=== PATIENT | male | born 1955 | race Caucasian/White ===

== ENCOUNTER 2016-10-07 05:37 | Inpatient (IN) | payer BC, OTHER ==
[2016-10-04 10:06] LABS: HEMATOCRIT 41.3 % (42.0-52.0); HEMOGLOBIN 14.2 gm/dL (14.0-18.0); MCHC 34.5 % (28.0-37.0); MCV 95.6 fL (80.0-100.0); RBC 4.32 mil/uL (4.50-6.00); RDW 16.1 % (10.5-14.5); WBC 12.4 thou/uL (4.0-11.0)
[2016-10-04 10:21] LABS: PROTIME 10.1 Seconds (9.3-11.4)
[2016-10-04 10:28] LABS: URINE BILIRUBIN NEGATIVE (Negative); URINE BLOOD NEGATIVE (Negative); URINE COLOR YELLOW; URINE GLUCOSE-RANDOM* NEGATIVE (Negative); URINE KETONES NEGATIVE (Negative); URINE LEUKOCYTES-REFLEX NEGATIVE (Negative); URINE PROTEIN (DIPSTICK) NEGATIVE (Negative); URINE UROBILINOGEN 0.2 E.U./dl (0.2-1.0)
[2016-10-04 10:33] LABS: ALBUMIN 3.8 g/dL (3.4-5.0); CREATININE 1.2 mg/dL (0.6-1.3); POTASSIUM 3.9 mmol/L (3.5-5.1); TOTAL BILIRUBIN 0.5 mg/dL (<0.1-1.0); TOTAL PROTEIN 6.9 g/dL (6.4-8.2)
[~2016-10-07] VITALS: Ht 162.6 cm; Wt 116.3 kg
--- NOTE | ~2016-10-07 | O ---
[facility] [place] [address] OPERATIVE REPORT Name: UDAY THOMASON Room #: 245-P [facility]..#: [id number] Admission: 10/11/16 Attend Phys: Ab Valente MD Discharge: 10/12/16 Date of : 57 Report #: [id number] THIS REPORT FOR: //name// CC: Ab Garcia DATE OF SERVICE: 10/11/2016 PREOPERATIVE DIAGNOSIS: Right lower extremity arterial occlusive disease. POSTOPERATIVE DIAGNOSIS: Right lower extremity arterial occlusive disease. OPERATION: right femoral to below the knee popliteal artery bypass with 6 mm PTFE. SURGEON: Ab Valente M.D. CAREER DEVELOPMENT ASSOCIATE: Rishi. ANESTHESIA: General. INDICATIONS: The patient is a 61-year-old with lower extremity arterial occlusive disease. The patient has failed angioplasty of the superficial femoral artery and has also failed a femoral popliteal bypass with vein approximately 2 months ago and now the patient has rest pain. FINDINGS AND TECHNIQUE: After general anesthesia was established, an incision was made below the knee to expose the below the knee popliteal artery. Another incision was made in the groin to expose the common femoral artery. There was scarring in both areas from previous surgery. A tunnel was made between the two arterial exposures and a length of 6 mm PTFE was brought through. 10,000 units of heparin were given and end-to-side anastomosis was made between the PTFE and the common femoral artery, the distal end was sewn to an end-to-side fashion to the popliteal artery. Flow was established through the graft and hemostasis was ascertained. 25 mg of protamine was given. When hemostasis was satisfactory, the wounds were irrigated with antibiotics and closed in the usual fashion. The patient was taken to the recovery area in good condition, having tolerated the procedure well. Doppler was used to interrogate the graft and the distal anastomosis [facility] [address] [place] [address] OPERATIVE REPORT Name: UDAY THOMASON Room #: 245-P [facility] IN M.R.#: [id number] Admission: 10/11/16 Attend Phys: Ab Valente MD Discharge: 10/12/16 Date of : 57 Report #: [id number] prior to closure and good flow without high frequency obstructive signals were noted. All counts reported as correct. <ELECTRONICALLY SIGNED> By: Ab Valente MD 10/16/16 [id number] Ab Valente MD /nt
--- NOTE | ~2016-10-07 | HC ---
[facility] [place] [address] CONSULTATION Name: UDAY THOMASON Room #: 245-P [facility] IN ..#: [id number] Admission: 10/11/16 Attend Phys: Ab Valente MD Discharge: Date of : 57 Report #: [id number] THIS REPORT FOR: //name// CC: Ab Garcia DATE OF SERVICE: 10/12/2016 REASON FOR CONSULTATION: Consult has been requested by Dr. Valente for management of diabetes. HISTORY OF PRESENT ILLNESS: The patient is a 61-year-old male with history of hypertension, diabetes, history of peripheral vascular disease, was admitted yesterday for right fem-popliteal bypass surgery. The patient is seen postoperatively. The patient is presently sitting in the chair, denies any complaint. His pain is fairly well controlled at present. The patient denies any dizziness, chest pain, shortness of breath. No nausea or vomiting. No fever or chills. PAST MEDICAL HISTORY: Significant for hypertension, hyperlipidemia, COPD, peripheral vascular disease. No history of any peptic ulcer disease, bleeding disorder, no coronary artery disease. No CVA. ALLERGIES: Allergic to GABAPENTIN, please look at the nursing documentation for reaction. HOME MEDICATION: Includes Plavix, cetirizine, atorvastatin, lisinopril, aspirin, naproxen, hydrocodone, Lyrica, alprazolam, Symbicort, latanoprost eye drops, Pepcid and metformin 500 mg once a day. Please look at the nursing documentation. FAMILY HISTORY: Significant for diabetes. SOCIAL HISTORY: He still activity smokes. No history of alcohol abuse or illicit drug abuse. The patient works as a cnc mill set up operator. REVIEW OF SYSTEMS: CONSTITUTIONAL: No recent weight loss or weight gain. No fever or chills. EYES: No change in vision. THROAT: Denies any sore throat. RESPIRATORY: No cough, expectoration. CARDIOVASCULAR: No chest pain, dizziness. GASTROINTESTINAL: No nausea, vomiting. GENITOURINARY: No dysuria, hematuria. NEUROLOGIC: He has tingling in his fingertips. He is afraid of wearing Accu-Chek because it is painful. [facility] [address] [place] [address] CONSULTATION Name: UDAY THOMASON [place]on Room #: 245-P [facility] IN .R.#: [id number] Admission: 10/11/16 Attend Phys: Ab Valente MD Discharge: Date of : 57 Report #: [id number] A 12-point review of system is negative other than the positive and negative dictated in the history of present illness and in the review of system. PHYSICAL EXAMINATION: VITAL SIGNS: Blood pressure 137/66, heart rate is 80 per minute, afebrile. GENERAL: The patient is awake and alert, not in acute respiratory distress. He is sitting in a chair. EYES: Pupils equal and reactive to light. THROAT: Appears normal. NECK: Supple, no JVD, no bruit, no lymphadenopathy. CARDIOVASCULAR: S1, S2. No S3. CHEST: Bilateral air entry present. Clear on auscultation. ABDOMEN: Soft, bowel sounds present, no mass, no organomegaly, no tenderness. PERIPHERY: No pedal edema. Dorsalis pedis 1+ on the left leg, warm right foot. LABORATORY DATA: Reviewed. His white count is 14.8, hemoglobin is 11.9, platelets are 249. Blood glucose was 117. Basic metabolic panel: Potassium 3.8, BUN and creatinine 10 and 0.9. ASSESSMENT AND PLAN: 1. Status post femoropopliteal bypass. Postoperative course as per Dr. Valente. Plans are noted to discharge the patient later today. 2. Diabetes. The patient has been refusing Accu-Chek because he states it is very painful. He does not remember the last hemoglobin A1c. I have encouraged him to follow up with his PCP to have his A1c checked and it is very likely that his A1c has been followed regularly as outpatient. He will continue on metformin. 3. Chronic obstructive pulmonary disease. The patient will be continued on Symbicort. 4. Tobacco abuse. I have strongly encouraged the patient to stop smoking. The patient will follow up with Dr. Valente as needed. I have also advised him to follow up closely with his PCP. Treatment plan has been explained to the patient in detail. <ELECTRONICALLY SIGNED> By: Celio Browning MD 10/12/16 1306 [id number] Celio Browning MD /nt
[~2016-10-07 05:37] MED LIST: ALEVE220 MG PO; ALL DAY ALLERGY10 M3 PO; ALPRAZOLAM 0.0.25 M1 PO; AMBIEN 5 MG TABL5 M1 PO; ASPIR 8181 MG PO; AVODART0.5 MG PO; CLONAZEPAM PO; DUONEB 2.5-0.5 M3 ML INH; GLUCOPHAGE XR500 MG PO; GLUCOPHAGE XR750 MG PO; HYDROCODONE-AP1 EAC6 PO; LEVAQUIN 750 M750 MG PO; LIPITOR 20 MG T20 M1 PO; LISINOPRIL10 MG PO; LYRICA 50 MG50 MG PO; MUCINEX600 MG PO; NICOTINE TRANSD21 M1 TD; NOHOMEMEDICATIONS; NOVOLOG100 UNIT/1; PHENTERMINE H37.5 MG PO; PLAVIX 75 MG TA75 M1 PO; PREDNISONE 10 M10 MG; PROZAC 10 MG CA10 MG PO; SYMBICORT160 MCG/4. INH; XALATAN2.5 ML OPHTHALMIC; XANAX 0.5 MG0.5 MG PO
[2016-10-11 07:00] VITALS: BP 125/69
[2016-10-12 05:56] LABS: HEMATOCRIT 34.5 % (42.0-52.0); HEMOGLOBIN 11.9 gm/dL (14.0-18.0); MCH 33.1 pg (26.0-34.0); MCHC 34.4 % (28.0-37.0); MCV 96.1 fL (80.0-100.0); RBC 3.59 mil/uL (4.50-6.00); RDW 15.9 % (10.5-14.5); WBC 14.8 thou/uL (4.0-11.0)
[2016-10-12 06:12] LABS: CALCIUM 7.7 mg/dL (8.5-10.1); CREATININE 0.9 mg/dL (0.6-1.3); POTASSIUM 3.8 mmol/L (3.5-5.1)
[2016-10-12 10:08] VITALS: BP 124/70
[2016-10-12 11:48] VITALS: BP 124/70
== END 2016-10-12 13:17 | disposition home or self-care (01) | DRG 253 ==
LOC: PRE 05:37 → TBA 10-11 05:12 → PRE 10-11 08:25 → ICU 10-11 13:52
PROVIDERS: Physician Assistant; Surgery Vascular Surgery
PROC: 041K0JL Bypass Right Femoral Artery to Popliteal Artery with Synthetic Substitute, Open Approach (ICD-10-PCS; principal; 2016-10-11)
DX: I74.8 Embolism and thrombosis of other arteries (principal); Z68.41 Body mass index [BMI] 40.0-44.9, adult; E11.9 Type 2 diabetes mellitus without complications; I77.1 Stricture of artery; E66.9 Obesity, unspecified; I10 Essential (primary) hypertension; E78.5 Hyperlipidemia, unspecified; J44.9 Chronic obstructive pulmonary disease, unspecified; I73.89 Other specified peripheral vascular diseases; F17.210 Nicotine dependence, cigarettes, uncomplicated; Z88.6 Allergy status to analgesic agent; Z79.82 Long term (current) use of aspirin; Z79.899 Other long term (current) drug therapy; Z79.4 Long term (current) use of insulin; Z83.3 Family history of diabetes mellitus
CPT/HCPCS: 10078; 47375; 48888; 50010; 50101; 50382; 50386; 50417; 50455; 50677; 50953; 51301; 51412; 51481; 51751; 54118; 56524; 56525; 56526; 56528; 62110; 62900; 64031; 65020; 65043; 70005

== ENCOUNTER 2016-10-27 14:33 | Emergency (ER) | payer BC, OTHER ==
[~2016-10-27] VITALS: Ht 162.6 cm; Wt 113.4 kg
[2016-10-27 15:06] LABS: ABSOLUTE NEUTROPHILS 8.4 thou/uL (1.4-8.2); BASOPHILS 1.1 % (0.0-2.0); EOSINOPHILS 3.7 % (0.0-3.0); HEMATOCRIT 40.3 % (42.0-52.0); LYMPHOCYTES 21.9 % (24.0-44.0); MCH 32.8 pg (26.0-34.0); MCHC 34.7 % (28.0-37.0); MCV 94.5 fL (80.0-100.0); MONOCYTES 5.9 % (1.0-8.0); PLATELET COUNT 324 thou/uL (150-400); POLYS 67.4 % (36.0-66.0); RBC 4.26 mil/uL (4.50-6.00); RDW 14.7 % (10.5-14.5); WBC 12.5 thou/uL (4.0-11.0)
[2016-10-27 15:07] LABS: MANUAL DIFF NO
[2016-10-27 15:18] LABS: POTASSIUM 4.2 mmol/L (3.5-5.1)
[2016-10-27 15:19] LABS: CALCIUM 9.1 mg/dL (8.5-10.1)
== END 2016-10-27 15:39 | disposition home or self-care (01) ==
LOC: ER 14:33
PROVIDERS: Physician Assistant
DX: T81.31XA Disruption of external operation (surgical) wound, not elsewhere classified, initial encounter (principal); W01.0XXA Fall on same level from slipping, tripping and stumbling without subsequent striking against object, initial encounter; Y93.89 Activity, other specified; Y92.89 Other specified places as the place of occurrence of the external cause; Y99.8 Other external cause status; J44.9 Chronic obstructive pulmonary disease, unspecified; I10 Essential (primary) hypertension; E11.9 Type 2 diabetes mellitus without complications; E78.00 Pure hypercholesterolemia, unspecified; Z98.890 Other specified postprocedural states; Z88.8 Allergy status to other drugs, medicaments and biological substances; F10.99 Alcohol use, unspecified with unspecified alcohol-induced disorder
CPT/HCPCS: 50101; 51412; 56531; 62110; 62850; 70005

== ENCOUNTER → 2016-12-26 | Outpatient (CLI) | payer BC, OTHER | LOC: HYPER 07:09 | DX: T81.31XD Disruption of external operation (surgical) wound, not elsewhere classified, subsequent encounter (principal); I73.9 Peripheral vascular disease, unspecified; E78.00 Pure hypercholesterolemia, unspecified; I10 Essential (primary) hypertension; Z87.891 Personal history of nicotine dependence; Y83.8 Other surgical procedures as the cause of abnormal reaction of the patient, or of later complication, without mention of misadventure at the time of the procedure ==

== ENCOUNTER → 2017-01-09 | Outpatient (CLI) | payer BC, OTHER | LOC: HYPER 06:56 | DX: T81.31XD Disruption of external operation (surgical) wound, not elsewhere classified, subsequent encounter (principal); L89.610 Pressure ulcer of right heel, unstageable; I10 Essential (primary) hypertension; I73.9 Peripheral vascular disease, unspecified; E78.00 Pure hypercholesterolemia, unspecified; Z79.84 Long term (current) use of oral hypoglycemic drugs; Z87.891 Personal history of nicotine dependence; Y83.8 Other surgical procedures as the cause of abnormal reaction of the patient, or of later complication, without mention of misadventure at the time of the procedure ==

== ENCOUNTER → 2017-01-25 | Outpatient (CLI) | payer BC, OTHER | LOC: HYPER 07:00 | DX: T81.31XA Disruption of external operation (surgical) wound, not elsewhere classified, initial encounter (principal); L89.610 Pressure ulcer of right heel, unstageable; L89.892 Pressure ulcer of other site, stage 2; I73.9 Peripheral vascular disease, unspecified; E78.00 Pure hypercholesterolemia, unspecified; Z87.891 Personal history of nicotine dependence; Y83.8 Other surgical procedures as the cause of abnormal reaction of the patient, or of later complication, without mention of misadventure at the time of the procedure ==

== ENCOUNTER → 2017-02-15 | Outpatient (CLI) | payer BC, OTHER | LOC: HYPER 07:01 | DX: T81.31XA Disruption of external operation (surgical) wound, not elsewhere classified, initial encounter (principal); L89.610 Pressure ulcer of right heel, unstageable; L89.892 Pressure ulcer of other site, stage 2; I73.9 Peripheral vascular disease, unspecified; E78.00 Pure hypercholesterolemia, unspecified; I10 Essential (primary) hypertension; F15.90 Other stimulant use, unspecified, uncomplicated; Z79.84 Long term (current) use of oral hypoglycemic drugs; Z87.891 Personal history of nicotine dependence; Y83.8 Other surgical procedures as the cause of abnormal reaction of the patient, or of later complication, without mention of misadventure at the time of the procedure ==

== ENCOUNTER → 2017-03-16 | Outpatient (CLI) | payer BC, OTHER | LOC: HYPER 07:20 | DX: T81.31XD Disruption of external operation (surgical) wound, not elsewhere classified, subsequent encounter (principal); L89.892 Pressure ulcer of other site, stage 2; L89.610 Pressure ulcer of right heel, unstageable; Z79.84 Long term (current) use of oral hypoglycemic drugs; E78.00 Pure hypercholesterolemia, unspecified; I10 Essential (primary) hypertension; Z87.891 Personal history of nicotine dependence; Y83.8 Other surgical procedures as the cause of abnormal reaction of the patient, or of later complication, without mention of misadventure at the time of the procedure ==

== ENCOUNTER → 2021-02-24 | Outpatient (CLI) | payer BC, OTHER ==
[~2021-02-24] MED LIST changes: +ALPRAZOLAM 0.50.5 M1 PO; +ASA81BEC PO; +ATORVASTATIN CA20 MG PO; +DURAGESIC1 EAC5 TP; +LATANOPROST 0.2.5 ML OPHTHALMIC; +LOSARTAN POTASS50 MG PO; +MELOXICAM15 MG PO; +METFORMIN HCL500 M1 PO; +NORCO 10-325 T1 EACH PO; +PERCOCET 7.5-31 EAC1 PO; +PLAVIX 75 MG TA75 MG PO; +PREGABALIN100 MG PO
== END ==
LOC: LAB 07:55
PROVIDERS: Orthopaedic Surgery Foot and Ankle Surgery; ATTEND Student in an Organized Health Care Education/Training Program
DX: Z01.812 Encounter for preprocedural laboratory examination (principal); Z20.822 Contact with and (suspected) exposure to COVID-19

== ENCOUNTER 2021-02-26 06:14 | Day surgery (SDC) | payer BC, OTHER ==
[~2021-02-26] VITALS: Ht 162.6 cm; Wt 90.7 kg
--- NOTE | ~2021-02-26 | O ---
[facility] [place] [address] OPERATIVE REPORT Name: UDAY THOMASON Room #: 150-2 [facility].#: [id number] Admission: 02/26/21 Attend Phys: Kannan Garcia MD Discharge: Date of : 57 Report #: [id number] THIS REPORT FOR: cc: Edwin Garcia MD, Stanley P. MD Kneidel, Matthew T. MD ~ DOC #: [id number] Kannan Garcia MD DATE OF SERVICE: 02/26/2021 PREOPERATIVE DIAGNOSIS: Right foot bunionette. POSTOPERATIVE DIAGNOSIS: Right foot bunionette. PROCEDURE: Right foot Silver osteotomy, fifth metatarsal. SURGEON: Kannan Garcia M.D. REMOTE RUBY ON RAILS DEVELOPER: None. ANESTHESIA: General. ESTIMATED BLOOD LOSS: 5 mL TOURNIQUET: No tourniquets. COMPLICATIONS: No complications. DESCRIPTION OF PROCEDURE: The patient was brought to the operating room where he was placed under general anesthesia. Once under adequate general anesthesia, the right foot was then prepped and draped in a sterile manner. A dorsal incision over the fifth metatarsal head laterally was made. This was approximately 2 cm in length. It was dissected down through the soft tissue to the dorsal capsule of the joint. This was then incised exposing the metatarsal head and the lateral eminence of the bone. The lateral eminence of the metatarsal head was then removed utilizing a sagittal saw and a rongeur. Once complete, the wound was irrigated copiously. The capsule was repaired with 3-0 Vicryl suture. The wound was irrigated once again copiously and closed with 3-0 Vicryl in subcutaneous tissues and 3-0 nylon for the skin. The wound was dressed with Xeroform, 4 x 4's, and a sterile soft compressive dressing was placed. There was no tourniquet. There were no complications. The patient tolerated the procedure well and was to the recovery room without incident. MD GEE Marcial/KORY [address] [address] OPERATIVE REPORT Name: UDAY THOMASON Room #: 150-2 [facility]..#: [id number] Admission: 02/26/21 Attend Phys: Kannan Garcia MD Discharge: Date of : 57 Report #: [id number] By: [id number] Kannan Garcia MD /nt
[~2021-02-26 06:14] MED LIST changes: -PERCOCET 7.5-31 EAC1 PO
[2021-02-26 07:22] VITALS: BP 142/64
[2021-02-26] MEDS ORDERED: PERCOCET 7.5-31 EAC1 PO (08:16)
[2021-02-26 08:35] VITALS: BP 142/64
== END 2021-02-26 09:30 | disposition home or self-care (01) ==
LOC: OR 06:14 → TBA 06:16 → OR 08:59
PROVIDERS: ATTEND Orthopaedic Surgery Foot and Ankle Surgery
DX: M21.621 Bunionette of right foot (principal); I10 Essential (primary) hypertension; E78.00 Pure hypercholesterolemia, unspecified; E11.9 Type 2 diabetes mellitus without complications; J43.9 Emphysema, unspecified; F17.210 Nicotine dependence, cigarettes, uncomplicated; Z98.890 Other specified postprocedural states; Z79.899 Other long term (current) drug therapy; Z88.8 Allergy status to other drugs, medicaments and biological substances
CPT/HCPCS: 50010; 50101; 50386; 50951; 56524; 56527; 57091; 62110; 62900; 70005